=== PATIENT | male | born 1955 | race Caucasian/White ===

== ENCOUNTER → 2019-02-10 | Outpatient (REF) | LOC: M LAB LCGH 15:06 | PROVIDERS: ATTEND Physician Assistant | DX: L82.0 Inflamed seborrheic keratosis (principal) ==

== ENCOUNTER → 2021-07-03 | Outpatient (REF) | payer MEDICARE | LOC: M SFHCDERM 18:24 → M LAB REF 18:24 | PROVIDERS: ATTEND Physician Assistant | DX: L57.0 Actinic keratosis (principal) ==